=== PATIENT | male | born 1980 | race Caucasian/White ===

== ENCOUNTER 2019-08-28 00:52 | Emergency (ER) | payer MEDICAID ==
[~2019-08-28] VITALS: Ht 170.2 cm; Wt 63.5 kg
[2019-08-28 01:00] VITALS: BP_SYST 127
--- NOTE | 2019-08-28 01:00 | NUR ---
Patient triaged and placed in waiting room. VSS and patient appears in no acute distress at this time. Accompanied by FAM MEMBER, awaiting available bed, and MD notified of need for MSE.
--- NOTE | 2019-08-28 02:00 | NUR ---
CALL PT NAME IN THE WR.NO ANSWER.
--- NOTE | 2019-08-28 02:05 | NUR ---
CALL PT NAME IN THE WR.NO ANSWER.
--- NOTE | 2019-08-28 02:10 | NUR ---
CALL PT NAME IN THE WR.NO ANSWER.
== END 2019-08-28 02:10 | disposition left against medical advice (07) ==
LOC: SED 00:52
DX: R10.9 Unspecified abdominal pain (principal); Z53.21 Procedure and treatment not carried out due to patient leaving prior to being seen by health care provider